=== PATIENT | male | born 1975 ===

== ENCOUNTER 2022-03-08 20:18 | Emergency (ER) | payer OTHER ==
[~2022-03-08] VITALS: Ht 180.3 cm; Wt 81.6 kg
[2022-03-09] MEDS ORDERED: KETO10TA2 PO (03:06)
== END 2022-03-09 03:36 ==
LOC: ER 20:18
DX: S90.31XA Contusion of right foot, initial encounter (principal); W22.8XXA Striking against or struck by other objects, initial encounter; Y93.9 Activity, unspecified; Y92.832 Beach as the place of occurrence of the external cause

== ENCOUNTER 2022-03-21 11:29 | Outpatient (CLI) | payer OTHER ==
[~2022-03-21 11:29] MED LIST: KETO10TA2 PO
== END 2022-03-21 11:31 | disposition home or self-care (01) ==
LOC: RAD 11:29
DX: S86.011A Strain of right Achilles tendon, initial encounter (principal); Z01.810 Encounter for preprocedural cardiovascular examination